=== PATIENT | male | born 2000 | race African-American/Black ===

== ENCOUNTER → 2021-04-20 14:59 | Outpatient (CLI) | payer OTHER, SELFPAY | PROVIDERS: Visit Provider Family Medicine | DX: Z23 Encounter for immunization (principal) ==

== ENCOUNTER 2021-09-21 16:36 | Emergency (ER) | payer OTHER, SELFPAY ==
[2021-09-21 16:38] VITALS: BP 133/90; PULSE 82; RESP 17; TEMP 37.2; O2SAT 100; BMI 23.6
--- NOTE | 2021-09-21 16:58 | EX.ED.UPPERE ---
HPI History of Present Illness Chief Complaint: Laceration Informant: patient Narrative Narrative: Right hand male presents with left thumb injury occurring prior to arrival. Moving away for school helping move of mini refrigerator when it slipped, he is had a stump under the fridge rater and it cut his thumb. He is not on any anticoagulation medicines. Tetanus more than 10 years. No past medical history. He came directly here. Tetanus Immunization: >10 years PFSH PFSH Medical History no medical history Allergy/AdvReac Type Severity Reaction Status Date / Time No Known Allergies Allergy Verified 09/21/21 16:37 Surgical History no surgical history Social History Smoking Status: Light Smoker (<10/day) ROS ROS ED Constitutional Constitutional ED: Denies chills, fever(s) or sweats Eyes Eyes: Denies change in vision ENT ENT ED: Denies dysphagia or sore throat Cardiovascular Cardiovascular: Denies chest pain, leg edema, palpitations or racing heartbeat Respiratory/Chest Respiratory/Chest: Denies cough, dyspnea or dyspnea on exertion Gastrointestinal Gastrointestinal: Denies abdominal pain, diarrhea, nausea or vomiting Genitourinary Genitourinary ED: Denies dysuria, hematuria or urinary frequency Musculoskeletal Musculoskeletal: Denies back pain, extremity pain or neck pain Integumentary Reports other Details: Left thumb laceration ; Denies rash or wounds Neurologic Neurologic: Denies headache(s), paresthesias or weakness EXAM Physical Exam Const Vital Signs: 09/21/21 16:38 Temperature 99.0 F Temperature Source Temporal Pulse Rate 82 Respiratory Rate 17 Blood Pressure 133/90 H Blood Pressure Mean 104 Pulse Ox 100 Oxygen Delivery Method Room Air Positive well nourished and well developed General Appearance ED: well developed and NAD HEENT Reports moist mucous membranes normocephalic and atraumatic Eyes PERRL, EOMs intact bilaterally and conjunctivae normal General Eye ED: Yes normal appearance of both eyes Neck no lymphadenopathy and supple General: Negative for tenderness Chest Wall Chest: Negative for tenderness Resp normal respiratory effort and normal air movement Effort and Inspection: symmetric chest movement; Negative for respiratory distress Cardio regular rate, regular rhythm and no murmurs Peripheral Pulses: pulses 2+ throughout GI normal to inspection, nondistended, normoactive bowel sounds and non-tender Palpation: Negative for guarding or rebound tenderness present Back/Spine no CVA tenderness and no thoracic nor lumbar tenderness Extremity normal to inspection General Extremety ED: Negative for edema or tenderness General Extremity: Negative for edema Neuro oriented x3 and no sensory deficits noted Sensorium / Orientation: awake and alert Skin no rashes or lesions noted and no wounds Skin Narrative: Left thumb: Dressing removed, skin avulsion penetrating to subcutaneous layer approximately 1.5 cm in length semioval-shaped, bleeding noted distal part of wound controlled with pressure. There is no flap remaining. No joint involvement. MDM MDM MDM Narrative Medical decision making narrative: Patient avulsed skin of the distal volar aspect of the thumb. Tetanus is updated. Avulsion was cauterized, wound care discussed with the patient. He will follow-up with his doctor as needed. Procedure note: verbal consent. LET topical was placed to help with analgesia and with hemostasis. This was removed there was proximal pressure at the thumb for additional hemostasis, a silver nitrate stick was used for cauterization the wound. There was no complications with this. Patient taught procedure well. Dressing and cage splint placed by nursing. Discharge Plan Triage Chief Complaint: Laceration ED Provider: Luis Klein Dx/Rx/DC Orders Clinical Impression: Avulsion of skin of left thumb, Tetanus toxoid vaccination administered at current visit Instructions: Wound Care Dc, ED Skin Avulsion Primary Care Provider: Care Physician,No Primary Referrals: Care Physician,No Primary [Primary Care Provider] - Activity Restrictions/Additional Instructions: follow up with your doctor as needed. Disposition Disposition: Home, Self Care
[2021-09-21] MEDS: Diphth,Pertuss(Acell),Tet Vac 0.5 ML Vial IM (17:02)
[2021-09-21] MEDS: Lidocaine/Epi/Tetracaine 50 ML 1 APPLIC TOPICAL (17:03)
[2021-09-21] MEDS: Silver Nitrate (BKC) 1 EACH TOPICAL (18:00)
== END 2021-09-21 18:02 | disposition home or self-care (01) ==
PROVIDERS: Emergency Provider Emergency Medicine; Visit Provider Emergency Medicine
DX: S61.402A Unspecified open wound of left hand, initial encounter (principal); F17.210 Nicotine dependence, cigarettes, uncomplicated; Z23 Encounter for immunization; W26.8XXA Contact with other sharp object(s), not elsewhere classified, initial encounter
CPT/HCPCS: 90471; 90715; 99283